=== PATIENT | female | born 1995 | race Hispanic/Latino ===

== ENCOUNTER 2022-06-30 10:07 | Emergency (ER) | payer OTHER ==
[~2022-06-30] VITALS: Ht 160 cm; Wt 113.4 kg
[2022-06-30] MEDS ORDERED: LACTATED RINGERS 1000ML 1,000 ML IV ONE (10:30)
[2022-06-30 10:31] LABS: BASOPHILS % (AUTO) 0.8 % (0.0-5.0); EOSINOPHILS % (AUTO) 2.1 % (0.0-8.0); HEMATOCRIT 31.9 % (36-48); LYMPHOCYTES % (AUTO) 23.3 % (21.0-51.0); MEAN CORPUSCULAR HEMOGLOBIN 25.7 pg (27.0-33.0); MEAN CORPUSCULAR VOLUME 80.4 fL (79-99); MONOCYTES % (AUTO) 6.7 % (3.0-13.0); NEUTROPHILS % (AUTO) 66.4 % (40.0-77.0); PLATELET COUNT (AUTO) 263 K/uL (130-400); RED BLOOD CELL COUNT(AUTO) 3.97 MIL/uL (4.00-5.50); RED CELL DISTRIBUTION WIDTH 14.1 % (11.0-15.5); WHITE BLOOD COUNT (AUTO) 8.7 K/uL (4.8-10.8)
[2022-06-30 10:48] LABS: CREATININE 0.6 mg/dL (0.5-1.5); POTASSIUM 3.8 mmol/L (3.5-5.1)
[2022-06-30 10:53] LABS: ALBUMIN 3.3 g/dL (3.5-5.0)
[2022-06-30] MEDS ORDERED: CYCL-309 PO (11:32)
[2022-06-30] MEDS ORDERED: IBUP-1493 PO (11:32)
[2022-06-30 12:38] VITALS: BP 128/65
== END 2022-06-30 12:45 | disposition home or self-care (01) ==
LOC: EDH 10:07
DX: S70.02XA Contusion of left hip, initial encounter (principal); S70.12XA Contusion of left thigh, initial encounter; S80.01XA Contusion of right knee, initial encounter; Z79.1 Long term (current) use of non-steroidal anti-inflammatories (NSAID); V49.49XA Driver injured in collision with other motor vehicles in traffic accident, initial encounter; Y93.89 Activity, other specified; Y92.89 Other specified places as the place of occurrence of the external cause; Y99.8 Other external cause status
CPT/HCPCS: 99285; 70450; 96360; 96361; 84484; 80053; 85025; 36415; 73552; 73590; 72125; 71250; 74176; J7120